=== PATIENT | female | born 1995 | race Caucasian/White ===

== ENCOUNTER 2017-08-13 08:11 | Emergency (ER) | payer BC, SELFPAY ==
[2017-08-13 08:12] VITALS: BP 89/61; PULSE 81; RESP 14; TEMP 36.7; BMI 17.8
[2017-08-13] MEDS: Ondansetron 4 MG/2 ML Vial IV (08:30)
[2017-08-13] MEDS: 0.9% Normal Saline 1,000 ML 999 ML IV (08:30)
[2017-08-13] MEDS: Dicyclomine 20 MG/2 ML Vial IM (08:31)
--- NOTE | 2017-08-13 08:33 | ED.VISSUMM ---
- ER Visit Summary Date of Service: 08/13/17 Chief Complaint: Nausea, vomiting, diarrhea History of Present Illness: The patient is a 22 F who has had nausea vomiting and diarrhea for the past 3 days. The nausea and vomiting just started yesterday. She has had 3 days of loose stools. She states that every time she has a bowel movement. She has had some abdominal cramping associated with this. Denies urinary symptoms. No fevers. She tried Pepto-Bismol and Mylanta without any relief. Denies any medical history. She is on control daily. Physical Examination: Vital signs reviewed. HEENT exam unremarkable. Heart is regular rate and rhythm without murmurs. Lungs are clear to auscultation. Abdomen is soft tenderness to palpation diffusely. No guarding or rebound tenderness. Extremities reveal no edema. Skin exam normal. Neurologic exam normal. Test Results: HCG negative. Urinalysis reveals trace ketones only Emergency Department Course and Treatment: She received normal saline as well as Bentyl and Zofran. She feels improved. When she had a bowel movement in the emergency department she had some trace blood in it. This is not surprising due to the amount of diarrhea she seems to be having. I feel the patient be discharged home. I do not feel she requires any blood work as her vital signs are normal. I will give her Zofran ODT, Bentyl and Imodium for home. She will follow-up with her PCP Treatment Plan: [] Disposition: Discharge Impression: Nausea, vomiting and diarrhea This note was generated with [employer] dictation software. It may contain incorrect words, spelling, and punctuation that were not noted in review of the chart prior to signing ED Disposition - Plan for ED Patient: Chief Complaint: Nausea/Vomiting/Diarrhea
[2017-08-13 08:36] VITALS: BP 108/74; PULSE 71; RESP 16; O2SAT 99
[2017-08-13 09:39] LABS: Bacteria 0 SEEN /hpf (None Seen); Mucous, Urine 0 SEEN /hpf (<or=2+); Red Blood Cells-Urine 0 SEEN /hpf (0-5); White Blood Cells 0 SEEN /hpf (0-5)
[2017-08-13 09:42] LABS: Color, Urine Yellow (Yellow); Glucose, Dipstick Normal (Normal); Ketone-Dipstick 15 mg/dl (Negative); Leukocyte Esterase-Dipstick Negative /ul (Negative); Nitrite-Dipstick Negative (Negative); Occult Blood-Urine 10 /ul (Negative); Protein-Dipstick Negative (Negative); Urine Bilirubin Dipstick Negative (Negative); Urine Clarity Clear (Clear); Urine Urobilinogen Normal (Normal)
[2017-08-13 09:43] LABS: Internal QC Validated? YES +Cl - CLEAR BKGD
[2017-08-13 09:44] LABS: Pregnancy, Urine Negative Negative
[2017-08-13 09:50] LABS: Squamous Epithelial Cells - UA 0-5 SEEN /hpf (5-10)
--- NOTE | 2017-08-13 09:54 | ED.DEP ---
ED Disposition - Plan for ED Patient: Disposition: Home or Assisted Living Chief Complaint: Nausea/Vomiting/Diarrhea Instructions: ED Diet Vomiting Diarrhea Prescriptions: Ondansetron [Zofran Odt] 4 mg PO Q8H PRN PRN #10 tab PRN Reason: Nausea Dicyclomine HCl [Bentyl] 20 mg PO TIDAC #20 cap Loperamide HCl [Imodium A-D] 2 mg PO TID #20 cap Referrals: Lyle Ledesma [Primary Care Provider] -
[2017-08-13 10:42] VITALS: BP 102/49; PULSE 84; RESP 14; O2SAT 100
--- NOTE | 2017-08-13 10:43 | ED.RN ---
THIS NURSE REVIEWED D/C INSTRUCTIONS WITH PT AND SISTER. PT VERBALIZED UNDERSTANDING OF INSTRUCTIONS. IV D/C. IV CATHETER INTACT. PT TOLERATED WELL. PT DENIES FURTHER NEEDS OR QUESTIONS AT THIS TIME.
== END 2017-08-13 10:44 | disposition home or self-care (01) ==
PROVIDERS: Emergency Provider Emergency Medicine; Family Provider Family Medicine; PCP Family Medicine
DX: R11.2 Nausea with vomiting, unspecified (principal); R19.7 Diarrhea, unspecified
CPT/HCPCS: 81001; 81025; 99283; J7030; J2405

== ENCOUNTER → 2018-02-08 11:47 | Outpatient (CLI) | payer BC, SELFPAY ==
[2018-02-08 13:07] LABS: Absolute Lymphocyte Count 2.59 X10^3/ul (0.83-4.51); Basophil# 0.04 X10^3/uL; Basophil% 0.8 % (0-1); Eosinophils% 1.9 % (0-5); Hematocrit 40.1 % (37-47); Hemoglobin 13.6 g/dl (12.0-15.0); Lymphocyte # 2.59 X10^3/ul (4.0); Lymphocyte % 50.4 % (19-41); Mean Corp Hgb Conc 33.9 g/gl (32-36); Mean Corpuscular Hgb 31.1 pg (27.0-32.0); Mean Corpuscular Volume 91.8 fL (81-99); Mean Platelet Vol. 10.1 fl (6.2-12.0); Monocyte# 0.45 X10^3/uL; Monocyte% 8.8 % (0-10); Neutrophil # 1.95 X10^3/uL (2.7-7.7); Neutrophil % 37.9 % (47-70); Platelet Count 274 K/mm3 (150-450); RBC Distribution Width CV 12.5 % (11.6-14.6); RBC Distribution Width SD 41.2 fl (35.1-43.9); Red Blood Count 4.37 M/mm3 (4.2-5.4); White Blood Count 5.1 K/mm3 (4.4-11.0)
[2018-02-08 13:08] LABS: POSITIVE COUNT NO; POSITIVE DIFFERENTIAL NO; POSITIVE MORPHOLOGY NO
[2018-02-08 13:58] LABS: ALB/GLOB Ratio 0.9 RATIO (0.9-2.4); AST(SGOT) 14 U/L (15-37); Alanine Aminotransfer ALT/SGPT 21 U/L (13-56); Albumin, Serum 3.7 g/dL (3.2-5.0); Alkaline Phosphatase 54 U/L (45-117); Anion Gap 10 (5-15); BUN 10 mg/dL (7-18); BUN/Creat Ratio 14.1 RATIO (10-20); Chloride 106 mmol/L (98-107); Creatinine, Serum 0.71 mg/dL (0.55-1.02); EST Glomerular Filtration Rate 111 mL/min (>60); Est Glom Filt Rate - Afr Amer 134 mL/min (>60); Free T3 2.9 pg/mL (2.18-3.98); Globulin 4.3 g/dL (2.2-4.2); Glucose 80 mg/dL (74-106); Potassium 3.9 mmol/L (3.5-5.1); Sodium Level 142 mmol/L (136-145); T4 Total, Thyroxin 10.4 ug/dL (4.8-13.9); Thyroid Stim Hormone (TSH) 0.93 uIU/mL (0.358-3.74)
--- OUTSIDE RECORDS SUMMARY | 2018-05-12 21:16 | XMS RPT_ITS ---
:1995 Author Organization [facility] Care Team Providers Name Role Phone Lyle Ledesma Attending Unavailable Lyle Ledesma Referring Unavailable LYLE LEDESMA Primary Care Unavailable Buddy Madden Attending Unavailable LYLE LEDESMA Primary Care Unavailable PROBLEMS PROBLEMS DATE TYPE CONDITION / CODE ATTENDING STATUS SOURCE 02/08/2018 Unknown R63.4 - Abnormal Lyle Ledesma Active [place] [facility] R63.4(ICD-10) Hospital Repository PROCEDURES PROCEDURES No Procedure Records FoundRESULTS RESULTS PROGRESS Observed: 02/13/2018 Status: COMPLETED Source: [place] 1:36 PM [facility] REPOSITORY HNO ID: [id number] Author: Ramandeep Ruth Service: (none) Author Type: Nurse Practitioner Type: Progress Notes Filed: 02/13/2018 1:41 PM Note Text: Subjective HPI Pt presents with c/o cold sore to upper lip x 3 days. 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 Reports recent increase in stressors with final exams. Has been applying OTC Abreva with no improvement. Used a new chapstick last night as well and this am upper lip was swollen as well. Thinks had allergic reaction. Denies fever, chills, myalgias, URI sx. Review of Systems Constitutional: Negative for chills and fever. HENT: Negative for congestion and sore throat. Respiratory: Negative for cough. Objective Physical Exam Constitutional: She is oriented to person, place, and time and well-developed, well-nourished, and in no distress. No distress. HENT: Mouth/Throat: Oral lesions present. Erythematous, scalingcrusting lesion noted. Generalized edema to entire upper lip. Neurological: She is alert and oriented to person, place, and time. Skin: Skin is warm and dry. She is not diaphoretic. BP 104/76 Pulse 105 Temp 37.3 ?C (99.1 ?F) (Left Tympanic) Resp 16 Wt 48.5 kg (107 lb) SpO2 98% .Patient presents with: Acute Visit: sore on lip x 2 days PAST MEDICAL HISTORY Diagnosis Date - NEGATIVE MEDICAL HISTORY PAST SURGICAL HISTORY Procedure Laterality Date - EXTRACTION ERUPTED TOOTH/EXR - TONSILLECTOMY HX ALLERGIES Patient has no known allergies. MEDICATIONS acyclovir (ZOVIRAX) 5 % crea Apply 1 application to affected area five times daily for 14 days. famciclovir (FAMVIR) 500 mg tablet Take 1.5 tablets by mouth twice daily for 1 day. imiquimod (ALDARA) 5 % cream Apply 1 application to affected area every Wednesday,Wednesday,Wednesday. predniSONE (DELTASONE) 20 mg tablet Take 2 tablets by mouth once daily for 5 days. Take daily with food. No family history on file. Social History Substance Use Topics - Smoking status: Never Smoker - Smokeless tobacco: Never Used - Alcohol use No ASSESSMENT/PLAN: 1. 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 Swelling of upper lip - ICD9: 784.2, ICD10: R22.0 - PREDNISONE 20 MG TABLET The patient is instructed to return or seek emergency treatment if symptoms become worse or with any acute change in condition. The patient verbalizes understanding and is in agreement with plan of care. Ramandeep Ruth CNP CNOV Observed: 02/13/2018 Status: COMPLETED Source: [place] 11:45 AM [facility] REPOSITORY Office Visit (WSTR) ELVIRA COOPER ([id number]) 1995 F Date Time Provider Department 02/13/18 11:45 AM RAMANDEEP RUTH [facility] During your visit today, we recorded the following information about you: Temperature Pulse Respiration Blood pressure 99.1 degrees 105/minute 16/minute 104/76 Weight 48.5 kg Ramandeep Ruth APRN.COMMUNITY SERVICE OFFICER 02/13/2018 1:41 PM Signed Subjective HPI Pt presents with c/o cold sore to upper lip x 3 days. 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 Reports recent increase in stressors with final exams. Has been applying OTC Abreva with no improvement. Used a new chapstick last night as well and this am upper lip was swollen as well. Thinks had allergic reaction. Denies fever, chills, myalgias, URI sx. Review of Systems Constitutional: Negative for chills and fever. HENT: Negative for congestion and sore throat. Respiratory: Negative for cough. Objective Physical Exam Constitutional: She is oriented to person, place, and time and well-developed, well-nourished, and in no distress. No distress. HENT: Mouth/Throat: Oral lesions present. Erythematous, scalingcrusting lesion noted. Generalized edema to entire upper lip. Neurological: She is alert and oriented to person, place, and time. Skin: Skin is warm and dry. She is not diaphoretic. BP 104/76 Pulse 105 Temp 37.3 ?C (99.1 ?F) (Left Tympanic) Resp 16 Wt 48.5 kg (107 lb) SpO2 98% .Patient presents with: Acute Visit: sore on lip x 2 days PAST MEDICAL HISTORY Diagnosis Date - NEGATIVE MEDICAL HISTORY PAST SURGICAL HISTORY Procedure Laterality Date - EXTRACTION ERUPTED TOOTH/EXR - TONSILLECTOMY HX ALLERGIES Patient has no known allergies. MEDICATIONS acyclovir (ZOVIRAX) 5 % crea Apply 1 application to affected area five times daily for 14 days. famciclovir (FAMVIR) 500 mg tablet Take 1.5 tablets by mouth twice daily for 1 day. imiquimod (ALDARA) 5 % cream Apply 1 application to affected area every Wednesday,Wednesday,Wednesday. predniSONE (DELTASONE) 20 mg tablet Take 2 tablets by mouth once daily for 5 days. Take daily with food. No family history on file. Social History Substance Use Topics - Smoking status: Never Smoker - Smokeless tobacco: Never Used - Alcohol use No ASSESSMENT/PLAN: 1. 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 Swelling of upper lip - ICD9: 784.2, ICD10: R22.0 - PREDNISONE 20 MG TABLET The patient is instructed to return or seek emergency treatment if symptoms become worse or with any acute change in condition. The patient verbalizes understanding and is in agreement with plan of care. Ramandeep Ruth CNP Referring Provider: SELF [200] Allergies As of Date: 02/13/2018 (No Known Allergies) Date Reviewed: 02/13/2018 Reviewed by: Keke Andrade Ma - Fully Assessed Reason for Visit: Acute Visit [896] Cmt: sore on lip x 2 days Primary Visit Diagnosis:Recurrent cold sores [B00.1] Other Visit Diagnosis:Swelling of upper lip [R22.0] Order(s):acyclovir (ZOVIRAX) 5 % creaApply 1 application to affected area five times daily for 14 days.Disp: 5 gRfl: 1 predniSONE (DELTASONE) 20 mg tabletTake 2 tablets by mouth once daily for 5 days. Take daily with food.Disp: 10 tabletRfl: 0 famciclovir (FAMVIR) 500 mg tabletTake 1.5 tablets by mouth twice daily for 1 day.Disp: 3 tabletRfl: 0 Prescriptions as of 02/13/2018 Sig: ACYCLOVIR 5 % TOPICAL CREAM Apply 1 application to affect* FAMCICLOVIR 500 MG TABLET Take 1.5 tablets by mouth twi* IMIQUIMOD 5 % TOPICAL CREAM P* Apply 1 application to affect* Patient not taking: Reported on 02/13/2018 PREDNISONE 20 MG TABLET Take 2 tablets by mouth once * Problem List As Of Date: 02/13/2018 (None) Prescriptions ordered this encounter Disp Refills Start End ACYCLOVIR 5 % TOPICAL CREAM 5 g 1 02/13/2018 02/27/2018 Route: TOPICAL Sig: Apply 1 application to affected area five times daily for 14 days. PREDNISONE 20 MG TABLET 10 t* 0 02/13/2018 02/18/2018 Route: ORAL Sig: Take 2 tablets by mouth once daily for 5 days. Take daily with food. FAMCICLOVIR 500 MG TABLET 3 ta* 0 02/13/2018 02/14/2018 Route: ORAL Sig: Take 1.5 tablets by mouth twice daily for 1 day. Encounter Status:Closed by RAMANDEEP RUTH CNP on 02/13/18 CBC W/DIFF, AUTOMATED Collected: 02/08/2018 Status: F Source: [place] 11:56 AM [facility] REPOSITORY TYPE CODE TESTS RESULT OUT OF RANGE REFERENCE UNITS LAB L100.1000 4.4-11.0 K/mm3 Normal WBC 5.1 LAB L100.1200 4.2-5.4 M/mm3 Normal RBC 4.37 LAB L100.1300 12.0-15.0 g/dl Normal HGB 13.6 LAB L100.1400 37-47 % Normal HCT 40.1 LAB L100.1500 81-99 fL Normal MCV 91.8 LAB L100.1600 27.0-32.0 pg Normal MCH 31.1 LAB L100.1700 32-36 g/gl Normal MCHC 33.9 LAB L100.1810 11.6-14.6 % Normal RDW CV 12.5 LAB L100.1820 35.1-43.9 fl Normal RDW SD 41.2 LAB L100.1900 150-450 K/mm3 Normal PLT 274 LAB L100.2000 6.2-12.0 fl Normal MPV 10.1 LAB L100.2100 47-70 % Low NEUT% 37.9 LAB L100.2200 19-41 % High LY% 50.4 LAB L100.2300 0-10 % Normal MONO% 8.8 LAB L100.2400 0-5 % Normal EO% 1.9 LAB L100.2500 0-1 % Normal BASO% 0.8 LAB L100.2550 0.0-0.9 % Normal IM GRAN % 0.200 Result Comment: IG% - Immature Granulocytes (promyelocytes, myelocytes and metamyelocytes) > 1% indicates that a LEFT SHIFT is Present. LAB L100.2620 2.0-7.7 X10 3/uL Normal Absolute Neut 2.0 LAB L100.2720 0.83-4.51 X10 3/ul Normal Absolute Lymph 2.59 Performed By: #### L100.0100 #### [facility] [place], [address] COMPREHENSIVE METABOLIC Collected: 02/08/2018 Status: F Source: [place] 11:56 AM [facility] REPOSITORY TYPE CODE TESTS RESULT OUT OF RANGE REFERENCE UNITS LAB L501.0100 74-106 mg/dL Normal GLU 80 Result Comment: Please note revised GLUCOSE reference range effective 2017. LAB L501.1000 7-18 mg/dL Normal BUN 10 LAB L501.1100 0.55-1.02 mg/dL Normal CREAT,SERUM 0.71 Result Comment: The validity of the calculated GFR AND GFRAA in patients over 70 years has not been determined. Clinical correlation is essential. LAB L501.1110 >60 mL/min Normal EST GFR 111 Result Comment: Non- GFR Calc LAB L501.1115 >60 mL/min Normal EST GFR - AA 134 Result Comment: GFR Calc LAB L501.1300 10-20 RATIO Normal BUN/CRE 14.1 LAB L501.1500 6.4-8.2 g/dL T Normal PROT 8.0 LAB L501.1800 3.2-5.0 g/dL Normal ALB 3.7 LAB L501.1950 2.2-4.2 g/dL High GLOB 4.3 LAB L501.2000 0.9-2.4 RATIO Normal A/G 0.9 LAB L501.2200 8.5-10.1 mg/dL CA Normal 9.0 LAB L501.4100 15-37 U/L Low AST 14 LAB L501.4305 45-117 U/L Normal ALK P 54 LAB L501.4405 13-56 U/L Normal ALT 21 LAB L501.4600 0.20-1.00 mg/dL T Normal BILI 0.50 LAB L501.5300 136-145 mmol/L NA Normal 142 LAB L501.5600 3.5-5.1 mmol/L K Normal 3.9 LAB L501.5900 98-107 mmol/L CL Normal 106 LAB L501.6100 21.0-32.0 mmol/L Normal CO2 26.0 LAB L501.6200 5-15 Normal GAP 10 Performed By: #### L500.4050, L501.96419, L501.9310, L501.9520 #### [facility] [address] [place], [address] FREE T3 Collected: 02/08/2018 Status: F Source: JG 11:56 AM [facility] REPOSITORY TYPE CODE TESTS RESULT OUT OF RANGE REFERENCE UNITS LAB L501.32128 2.18-3.98 pg/mL Normal FREE T3 2.9 Performed By: #### L500.4050, L501.28961, L501.9310, L501.9520 #### [facility] [address] [facility] [place], [address] T4 TOTAL, THYROXIN Collected: 02/08/2018 Status: F Source: [place] 11:56 AM [facility] REPOSITORY TYPE CODE TESTS RESULT OUT OF RANGE REFERENCE UNITS LAB L501.9310 4.8-13.9 ug/dL T4 Normal THYROXIN 10.4 Performed By: #### L500.4050, L501.83032, L501.9310, L501.9520 #### [facility] [place], [address] THYROID STIM HORMONE Collected: 02/08/2018 Status: F Source: JG (TSH) 11:56 AM [facility] REPOSITORY TYPE CODE TESTS RESULT OUT OF RANGE REFERENCE UNITS LAB L501.9520 0.358-3.74 uIU/mL Normal TSH 0.93 Performed By: #### L500.4050, L501.29817, L501.9310, L501.9520 #### [facility] [place], [address] DISCHARGE INSTRUCTION Observed: 08/13/2017 Status: F Source: JG 9:55 AM [facility] REPOSITORY [facility] Medical Records Department [facility] [place] [address] Discharge Instruction 08/13/17 0954 MR#: [id number] Acct: [id number] Name: ELVIRA CHENG Rep #: [id number] : 1995 22 From: Buddy Madden MD PCP: LYLE LEDESMA Status: REG ER ED Disposition - Plan for ED Patient: Disposition: Home or Assisted Living Chief Complaint: Nausea/Vomiting/Diarrhea Instructions: ED Diet Vomiting Diarrhea Prescriptions: Ondansetron [Zofran Odt] 4 mg PO Q8H PRN PRN #10 tab PRN Reason: Nausea Dicyclomine HCl [Bentyl] 20 mg PO TIDAC #20 cap Loperamide HCl [Imodium A-D] 2 mg PO TID #20 cap Referrals: Lyle Ledesam [Primary Care Provider] - What to do if you have Problems For any increased pain, shortness of breath, bleeding, nausea or vomiting, chest pain, or any unexpected problems, contact your Primary Care Provider. Call [facility] ([phone]) or report to the closest Emergency Room. Call 911 if necessary. 08/13/17 0955 <Electronically signed by Buddy Madden MD> Date Buddy Madden MD Cosigner Signature (If Indicated): Date CC: LYLE LEDESMA EMERGENCY DEPARTMENT Observed: 08/13/2017 Status: F Source: [place] SUMMARY 9:54 AM [facility] REPOSITORY [facility] Medical Records Department [address] [place] [address] Emergency Department Summary 08/13/17 0833 MR#: [id number] Acct: [id number] Name: ELVIRA CHENG Rep #: [id number] : 1995 22 From: Buddy Madden MD PCP: LYLE LEDESMA Status: REG ER - ER Visit Summary Date of Service: 08/13/17 Chief Complaint: Nausea, vomiting, diarrhea History of Present Illness: The patient is a 22 F who has had nausea vomiting and diarrhea for the past 3 days. The nausea and vomiting just started yesterday. She has had 3 days of loose stools. She states that every time she has a bowel movement. She has had some abdominal cramping associated with this. Denies urinary symptoms. No fevers. She tried Pepto-Bismol and Mylanta without any relief. Denies any medical history. She is on control daily. Physical Examination: Vital signs reviewed. HEENT exam unremarkable. Heart is regular rate and rhythm without murmurs. Lungs are clear to auscultation. Abdomen is soft tenderness to palpation diffusely. No guarding or rebound tenderness. Extremities reveal no edema. Skin exam normal. Neurologic exam normal. Test Results: HCG negative. Urinalysis reveals trace ketones only Emergency Department Course and Treatment: She received normal saline as well as Bentyl and Zofran. She feels improved. When she had a bowel movement in the emergency department she had some trace blood in it. This is not surprising due to the amount of diarrhea she seems to be having. I feel the patient be discharged home. I do not feel she requires any blood work as her vital signs are normal. I will give her Zofran ODT, Bentyl and Imodium for home. She will follow-up with her PCP Treatment Plan: [] Disposition: Discharge Impression: Nausea, vomiting and diarrhea This note was generated with [employer] dictation software. It may contain incorrect words, spelling, and punctuation that were not noted in review of the chart prior to signing ED Disposition - Plan for ED Patient: Chief Complaint: Nausea/Vomiting/Diarrhea What to do if you have Problems For any increased pain, shortness of breath, bleeding, nausea or vomiting, chest pain, or any unexpected problems, contact your Primary Care Provider. Call [facility] ([phone]) or report to the closest Emergency Room. Call 911 if necessary. 08/13/17 0954 <Electronically signed by Buddy Madden MD> Date Buddy Madden MD Cosigner Signature (If Indicated): Date CC: LYLE LEDESMA URINALYSIS, COMPLETE Collected: 08/13/2017 Status: F Source: [place] 9:29 AM [facility] REPOSITORY Order Comment: Order Date: 08/13/17 How was Urine Obtained? COKE CRANE OPERATOR TO SPECIFY TYPE CODE TESTS RESULT OUT OF RANGE REFERENCE UNITS LAB L400.3000 Yellow COLOR Normal Yellow LAB L400.3050 Clear Normal CLARITY Clear LAB L400.3200 Normal mg/dl Normal GLUCOSE, UR Normal LAB L400.3300 Negative mg/dL Normal BILIRUBIN URINE Negative LAB L400.3400 Negative mg/dl High 15 KETONE UR LAB L400.3465 1.002-1.030 Normal SP.GR. DIPSTX 1.010 LAB L400.3550 5.0 - 8.0 pH UR Normal 7.0 LAB L400.3600 Negative mg/dl PROT Normal DIPSTX Negative LAB L400.3700 Normal mg/dl Normal UROBILI Normal LAB L400.3750 Negative Normal NITRITE UR Negative LAB L400.3780 Negative /ul High 10 OCCULT BLOOD-UR LAB L400.3800 Negative /ul LEUK Normal ESTERASE Negative LAB L400.4050 0-5 /hpf WBC 0 Normal SEEN LAB L400.4100 0-5 /hpf 0 Normal RBC-UA SEEN LAB L400.4150 5-10 /hpf SQUAM Normal EPI 0-5 SEEN LAB L400.4300 None Seen /hpf 0 Normal BACTERIA SEEN LAB L400.4350 <or=2+ /hpf 0 Normal MUCUS, URINE SEEN Performed By: #### L400.0001 #### [facility] [address] [place], [place], [address] ,URINE Collected: 08/13/2017 Status: F Source: [place] 9:29 AM [facility] REPOSITORY Order Comment: Order Date: 08/13/17 TYPE CODE TESTS RESULT OUT OF REFERENCE UNITS RANGE LAB L400.8000 Negative Normal HCGUQUAL Negative Result Comment: Very dilute urine specimens, as indicated by a low specific gravity, may not contain junior sales representative levels of hCG. If is still suspected, a first morning urine specimen should be collected 48 hours later and tested. Performed By: #### L400.7600 #### [facility] [address] [place], [address] ALLERGIES ALLERGIES DATE TYPE / CODE NAME / CODE REACTION SEVERITY SOURCE 08/13/2017 Drug No Known Unknown [facility] Allergy/416 Allergies/W67228 Hospital 422884(SNOM 0388(RXNORM) Repository ED CT) Drug NO KNOWN [facility] Class/20901 ALLERGIES [place] 1003(SNOMED Repository CT) ENCOUNTERS ENCOUNTERS ADMIT/DISCHARGE ACCOUNT ADMITTING ENCOUNTER LOCATION SOURCE NUMBER CLASS 02/13/2018/02/15/20 [id number] Ambulatory [address] [place] Repository 02/08/2018 [id number] Ambulatory [facility] ing:LAB Repository 08/13/2017/08/14/19 [id number] Emergency [address] ing:ED Repository PAYERS PAYERS ENCOUNTER GUARANTOR PAYER SUBSCRIBER SOURCE 02/08/2018 ELVIRA Garcia Primary FERNANDO BODAGERDOB: Jg [id number] Insurance:[facility] [id number] Community [place] y Number: [place], [place] [id number] Repository [address]ry: (330) Date:7294-12-06JB [phone] () [id number], [place] [address]NT: 02/08/2018 Secondary NOT GIVENUNK [place] Insurance:SELF PAY [facility] Number: Effective Repository Date:2018-02-08 08/13/2017 ELVIRA Garcia Primary FERNANDO BODAGERDOB: [place] [id number] Insurance:[facility] [id number] Community [place] y Number: [place], [place] [id number] Repository [address]un: (330) Date:0140-14-22MA [phone] () [id number], [place] [address]DU: 08/13/2017 Secondary NOT GIVENUNK [place] Insurance:SELF PAY [facility] Number: Effective Repository Date:2017-08-13
== END ==
PROVIDERS: Family Provider Family Medicine; PCP Family Medicine; Referring Provider Family Medicine; Visit Provider Family Medicine
DX: R63.4 Abnormal weight loss (principal)
CPT/HCPCS: 36415; 80053; 84436; 84443; 84481; 85025

== ENCOUNTER → 2018-09-19 15:31 | Outpatient (CLI) | payer BC, SELFPAY ==
[2018-09-19 18:16] LABS: Chlamydia Trachomatis by PCR Negative (Negative); Neisserai gonorrhoeae by PCR Negative (Negative); Probe Check PASS; Sample Adequacy Control PASS; Specimen Processing Control PASS
[2018-09-22 15:47] LABS: HPV Reflexed? NOT INDICATED
== END ==
PROVIDERS: Visit Provider Obstetrics & Gynecology
DX: Z12.4 Encounter for screening for malignant neoplasm of cervix (principal); Z11.3 Encounter for screening for infections with a predominantly sexual mode of transmission
CPT/HCPCS: 87491; 87591; 87624; 88175; G0145

== ENCOUNTER 2020-09-17 13:53 | Outpatient (RCR) | payer BC, SELFPAY | END 2020-09-21 23:59 | LOC: DC 13:53 | PROVIDERS: Visit Provider Nurse Practitioner Family | DX: O24.410 Gestational diabetes mellitus in pregnancy, diet controlled (principal); Z3A.00 Weeks of gestation of pregnancy not specified | CPT/HCPCS: 97802 ==

== ENCOUNTER 2020-10-08 15:30 | Outpatient (RCR) | payer BC, SELFPAY | END 2020-10-08 23:59 | disposition home or self-care (01) | LOC: DC 15:30 | PROVIDERS: Visit Provider Nurse Practitioner Family | DX: O24.410 Gestational diabetes mellitus in pregnancy, diet controlled (principal); Z3A.00 Weeks of gestation of pregnancy not specified ==

== ENCOUNTER 2020-11-27 17:05 | Outpatient (CLI) | payer BC, MEDICAID, SELFPAY ==
--- NOTE | 2020-11-27 17:35 | OB.TRI.NOTE ---
HPI - General HPI Narrative ELVIRA CHENG, is a 25 F @ 39+ weeks with GDMA1 who presents for outpatient ramirez for IOL to start on 11/28/20 Maternal Data Information Final ANNA: 12/02/20 Final ANNA Source: US <20 weeks PFSH PFSH Home Medications Bcp 1 tab PO DAILY 08/13/17 [History Last Taken Unknown] dicyclomine 20 mg PO TIDAC #20 cap 08/13/17 [Rx Last Taken Unknown] loperamide 2 mg PO TID #20 cap 08/13/17 [Rx Last Taken Unknown] ondansetron 4 mg PO Q8H PRN PRN #10 tab 08/13/17 [Rx Last Taken Unknown] Allergy/AdvReac Type Severity Reaction Status Date / Time No Known Allergies Allergy Verified 10/21/20 13:43 Social History (System 10/21/20 @ 13:43 by Alexi Gavin) Smoking Status: Never smoker Physical Exam Narrative VE: Closed/Thick/Soft- unable to place ramirez transcervically. Const alert and oriented x3 General Appearance: cooperative HEENT normocephalic GI GI Narrative: Gravid, non tender to palpation. OB / External & Speculum: external exam normal Extremity normal to inspection Skin no rashes or lesions noted Neuro oriented x3 and CN's II-XII intact bilaterally Psych Appearance: grossly normal NST FHR Rate Baby A Baseline: 140 Variability:: Moderate Accelerations:: 15 x 15 Decelerations:: None NST Reactive:: Yes FHR Category:: Category I Uterine Activity:: irregular Assessment & Plan (1) Gestational diabetes: QUALIFIERS: Gestational diabetes mellitus control: diet-controlled Trimester: third trimester Qualified Code(s): O24.410 - Gestational diabetes mellitus in , diet controlled PLAN: @ 39 weeks GDMA1, unable to place ramirez for out patient cervical ripening 1) Dc home after NST 2) IOL tomorrow Evening 7pm- cytotec 3) pt verbalized understanding (2) 39 weeks gestation of :
[2020-11-27 17:58] VITALS: BMI 26.2
== END 2020-11-27 18:00 | disposition home or self-care (01) ==
LOC: WPOUT 17:19 → WP 17:20
PROVIDERS: PCP Family Medicine; Referring Provider Obstetrics & Gynecology; Visit Provider Obstetrics & Gynecology
DX: O24.410 Gestational diabetes mellitus in pregnancy, diet controlled (principal); Z3A.39 39 weeks gestation of pregnancy
CPT/HCPCS: 59025; 59050; 99218; G0378

== ENCOUNTER 2020-11-28 19:00 | Inpatient (IN) | payer BC, MEDICAID, SELFPAY ==
[2020-11-28 19:27] VITALS: BP 132/75; PULSE 74
[2020-11-28 19:28] VITALS: TEMP 37.2; O2SAT 99
[2020-11-28 19:30] VITALS: BMI 25.8
--- NOTE | 2020-11-28 19:36 | PCM.HP.OB ---
HPI - General General Date of Admission: 11/28/20 HPI Narrative ELVIRA CHENG, is a 25 F at 39.3 weeks gestation that presents for scheduled induction of labor. Patient denies any loss of fluid or vaginal bleeding. Positive movement. complicated by GDM A1 and anxiety. EFW 78% and AC >98% at 37 weeks gestation. Maternal Data Information ANNA Calculator Estimated Delivery Date Method Current WG Current Estimate 12/02/20 Manual 39w 3d PFSH PFSH Medical History Anxiety Depression Gestational diabetes Home Medications Bcp 1 tab PO DAILY 08/13/17 [History Last Taken Unknown] dicyclomine 20 mg PO TIDAC #20 cap 08/13/17 [Rx Last Taken Unknown] loperamide 2 mg PO TID #20 cap 08/13/17 [Rx Last Taken Unknown] ondansetron 4 mg PO Q8H PRN PRN #10 tab 08/13/17 [Rx Last Taken Unknown] Allergy/AdvReac Type Severity Reaction Status Date / Time No Known Allergies Allergy Verified 10/21/20 13:43 Surgical History History of surgery Social History Smoking Status: Former smoker History Elective abortions Hx Para 0 Spontaneous abortions Hx # Term Pregnancies Ectopic pregnancies Hx # Pregnancies Multiple births # of living children ROS Eyes Eyes: Denies blurry vision, change in vision or spots in vision ENT HEENT: Denies dizziness or headache(s) Cardiovascular Cardiovascular: Denies abdominal pain, chest pain or dyspnea Respiratory/Chest Respiratory/Chest: Denies cough, dyspnea, shortness of breath at rest or shortness of breath with exertion Gastrointestinal Gastrointestinal: Denies abdominal pain, diarrhea or vomiting Genitourinary Genitourinary: Denies change in urinary stream, difficulty urinating or dysuria Musculoskeletal Musculoskeletal: Reports none Integumentary Integumentary: Denies rash Neurologic Neurologic: Denies dizziness, headache(s), memory loss or weakness Psychiatric Psychiatric: Reports none Vital Signs Vital Signs Vital Signs: 11/28/20 19:27 11/28/20 19:28 Temperature 98.9 F Temperature Source Temporal Pulse Rate 74 Blood Pressure 132/75 H BP Systolic 132 BP Diastolic 75 Pulse Ox 99 Weight Weight: 155 lb 2 oz Body Mass Index (BMI) 25.8 Physical Exam Const alert, oriented x3 and no apparent distress General Appearance: cooperative Orientation / Consciousness: awake Exam Limitations: no limitations HEENT normocephalic Head and Scalp: normal to inspection Eyes General Eye: normal appearance of both eyes Neck full ROM and no lymphadenopathy Lymph Lymphatic: no lymphadenopathy noted Chest inspection of chest normal Resp normal respiratory effort, normal air movement and clear to auscultation bilaterally Effort and Inspection: able to speak in complete sentences and symmetric chest movement Cardio regular rate and regular rhythm GI normal to inspection, nondistended, normoactive bowel sounds Manual OB Exam: dilated Closed Back/Spine normal ROM Extremity full ROM and no calf tenderness Skin no rashes or lesions noted General Skin Exam: no breakdown Neuro oriented x3 and CN's II-XII intact bilaterally Psych mental status grossly normal and thought process normal Labs Labs Labs: Hct 40.1 % (37-47) Hgb 13.6 g/dl (12.0-15.0) C.trachomatis DNA (PCR) Negative (Negative) B+ Rubella - immune HB- neg HC- neg HIV-NR RPR- NR GC/CH- neg GBS - negative COVID- 19 negative 11/25/20 Assessment & Plan (1) 39 weeks gestation of : (2) Encounter for induction of labor: (3) GDM (gestational diabetes mellitus), class A1: PLAN: Admit to labor and delivery for scheduled induction of labor Routine labs Blood glucose monitoring per policy IV fluids per orders GBS negative Cytotec 25 mcg PO every 4 hours [address]ticipate placement of ramirez cath in AM Dr. Alvarez notified of admission and is collaborating physician
[2020-11-28 19:59] LABS: Absolute Lymphocyte Count 2.82 X10^3/uL (0.83-4.51); Absolute Neutrophil Count 5.4 X10^3/uL (2.0-7.7); Basophil# 0.06 X10^3/uL; Basophil% 0.7 % (0-1); Eosinophil# 0.14 X10^3/uL; Eosinophils% 1.5 % (0-5); Hematocrit 39.9 % (37-47); Hemoglobin 13.9 g/dL (12.0-15.0); Lymphocyte # 2.82 X10^3/ul (0.83-4.51); Lymphocyte % 30.6 % (19-41); Mean Corp Hgb Conc 34.8 g/dL (32-36); Mean Corpuscular Hgb 32.6 pg (27.0-32.0); Mean Corpuscular Volume 93.7 fL (81-99); Mean Platelet Vol. 11.5 fl (6.2-12.0); Monocyte# 0.79 X10^3/uL; Monocyte% 8.6 % (0-10); NRBC Flagged by Analyzer 0 % (0-5); Neutrophil # 5.35 X10^3/uL (2.7-7.7); Neutrophil % 58.1 % (47-70); Platelet Count 191 K/mm3 (150-450); RBC Distribution Width CV 12.7 % (11.6-14.6); RBC Distribution Width SD 43.5 fl (35.1-43.9); Red Blood Count 4.26 M/mm3 (4.2-5.4); White Blood Count 9.2 K/mm3 (4.4-11.0)
[2020-11-28 20:25] LABS: Bedside Glucose 95 mg/dL (70-110)
[2020-11-28 20:45] VITALS: TEMP 37.1
[2020-11-28] MEDS: miSOPROStol 25 MCG TABLET PO (20:45)
[2020-11-28 20:46] VITALS: BP 115/65; PULSE 69
[2020-11-28 21:26] LABS: Bedside Glucose 89 mg/dL (70-110)
[2020-11-28] MEDS: Lactated Ringers 500 ML 999 ML IV (23:30)
[2020-11-29] VITALS (54 sets, daily range): BP systolic 110–151; BP diastolic 56–93; PULSE 63–137; RESP 16; TEMP 36.7–37.3; O2SAT 96–100
[2020-11-29 01:06] LABS: Bedside Glucose 92 mg/dL (70-110)
[2020-11-29] MEDS: Lactated Ringers 1,000 ML 50 ML IV (01:17)
[2020-11-29] MEDS: Mag Hydrox/Al Hydrox/Simeth 30 ML UDC PO ×3 (01:20→21:07)
[2020-11-29] MEDS: miSOPROStol 25 MCG TABLET PO ×2 (01:48→05:51)
[2020-11-29 04:56] LABS: Bedside Glucose 68 mg/dL (70-110)
[2020-11-29] MEDS: Lactated Ringers 500 ML 999 ML IV ×3 (07:08→21:00)
[2020-11-29 08:24] LABS: Amphetamine Urine VISTA NEGATIVE (<1000 ng/mL); Barbiturate Urine VISTA NEGATIVE (< 200 ng/mL); Benzodiazepine Urine VISTA NEGATIVE (< 200 ng/mL); Cocaine Urine VISTA NEGATIVE (< 300 ng/mL); Ecstacy Urine VISTA NEGATIVE (< 500 ng/mL); Methadone Urine VISTA NEGATIVE (< 300 ng/mL); PCP Urine VISTA NEGATIVE (< 25 ng/mL); THC Urine VISTA NEGATIVE (< 50 ng/mL); Vista UDS pH Range 6
[2020-11-29] MEDS: 0.9% Normal Saline Single 100 ML IV.SOLN. INTRA-UTER (08:50)
--- NOTE | 2020-11-29 08:58 | PN.OBGYN_ITS ---
Subjective Subjective Doing well per patient and nursing staff. Comfortable in bed. Feeling contractions. at bedside. Objective Data Objective Data Vital Signs: Vital Signs Temp Pulse BP Pulse Ox 98.8 F 69 115/81 H 99 11/29/20 00:48 11/29/20 07:39 11/29/20 07:21 11/29/20 07:39 Weight: 155 lb 2 oz Body Mass Index (BMI) 25.8 Intake & Output: Intake and Output for Last 24 Hours 11/27/20 11/28/20 11/29/20 23:59 23:59 23:59 Intake Total 1292.5 / 1292.5 Balance 1292.5 / 1292.5 Lab / Micro Data Result Diagrams: 11/28/20 19:30 Labs: Laboratory Results - last 24 hr 11/28/20 19:30: WBC 9.2, RBC 4.26, Hgb 13.9, Hct 39.9, MCV 93.7, MCH 32.6 H, MCHC 34.8, RDW Std Deviation 43.5, RDW Coeff of Jules 12.7, Plt Count 191, MPV 11.5, Immature Gran % (Auto) 0.500, Neut % (Auto) 58.1, Lymph % (Auto) 30.6, [place]osh % (Auto) 8.6, Eos % (Auto) 1.5, Baso % (Auto) 0.7, Absolute Neuts (auto) 5.4, Absolute Lymphs (auto) 2.82, Nucleated RBC % 0 11/28/20 19:30: Blood Type B POSITIVE, Antibody Screen NEGATIVE 11/28/20 20:14: POC Glucose 95 11/28/20 21:19: POC Glucose 89 11/29/20 00:55: POC Glucose 92 11/29/20 04:50: POC Glucose 68 L 11/29/20 07:35: Urine Opiates Screen NEGATIVE, Urine Methadone Screen NEGATIVE, Ur Barbiturates Screen NEGATIVE, Ur Phencyclidine Scrn NEGATIVE, Ur Amphetamines Screen NEGATIVE, U Methamphetamin-MDMA NEGATIVE, U Benzodiazepines Scrn NEGATIVE, Urine Cocaine Screen NEGATIVE, U Cannabinoids Screen NEGATIVE, Ur Drug Screen Comment Physical Exam Narrative cervical exam with dimple, not able to fully penetrate cervical os. Alvarenga catheter placed with stylus through cervical os by speculum exam. 30ml of NS instilled. Patient tolerated well. NST FHR Rate Baby A Baseline: 125 Variability:: Minimal Accelerations:: None Decelerations:: Variable FHR Category:: Category II Uterine Activity:: every 5 moderate to strong Assessment & Plan (1) 39 weeks gestation of : (2) Encounter for induction of labor: (3) GDM (gestational diabetes mellitus), class A1: PLAN: 1) Alvarenga with pitocin per policy for IOL. Start pitocin at 10am (4 hrs after PO cytotec dose) 2) Continuous EFM 3) Pain management upon request 4) BS policy for GDM 5) Category 2 FHT 6) Dr.James garcía physician and notified of patient status
[2020-11-29 09:31] LABS: Bedside Glucose 87 mg/dL (70-110)
[2020-11-29] MEDS: Oxytocin 30 units/NS 500 ml 30 UNITS/500 ML IV.SOLN IV (10:29)
[2020-11-29] MEDS: fentaNYL 100 MCG/2 ML Ampul IV (12:04)
[2020-11-29 13:00] LABS: Bedside Glucose 86 mg/dL (70-110)
[2020-11-29 15:26] LABS: Bedside Glucose 83 mg/dL (70-110)
[2020-11-29 17:20] LABS: Bedside Glucose 99 mg/dL (70-110)
[2020-11-29 17:20] LABS: Bedside Glucose 75 mg/dL (70-110)
--- NOTE | 2020-11-29 17:46 | PN.OBGYN_ITS ---
Subjective Subjective Resting up in charge, breathing through contractions. Family at bedside. Objective Data Objective Data Vital Signs: Vital Signs Temp Pulse BP Pulse Ox 99.2 F H 89 123/76 H 99 11/29/20 17:10 11/29/20 17:11 11/29/20 17:10 11/29/20 17:11 Weight: 155 lb 2 oz Body Mass Index (BMI) 25.8 Intake & Output: Intake and Output for Last 24 Hours 11/27/20 11/28/20 11/29/20 23:59 23:59 23:59 Intake Total 1796.20 / 1796.20 Balance 179. / 179. Lab / Micro Data Result Diagrams: 11/28/20 19:30 Labs: Laboratory Results - last 24 hr 11/28/20 19:30: WBC 9.2, RBC 4.26, Hgb 13.9, Hct 39.9, MCV 93.7, MCH 32.6 H, MCHC 34.8, RDW Std Deviation 43.5, RDW Coeff of Jules 12.7, Plt Count 191, MPV 11.5, Immature Gran % (Auto) 0.500, Neut % (Auto) 58.1, Lymph % (Auto) 30.6, [place] % (Auto) 8.6, Eos % (Auto) 1.5, Baso % (Auto) 0.7, Absolute Neuts (auto) 5.4, Absolute Lymphs (auto) 2.82, Nucleated RBC % 0 11/28/20 19:30: Blood Type B POSITIVE, Antibody Screen NEGATIVE 11/28/20 20:14: POC Glucose 95 11/28/20 21:19: POC Glucose 89 11/29/20 00:55: POC Glucose 92 11/29/20 04:50: POC Glucose 68 L 11/29/20 07:35: Urine Opiates Screen NEGATIVE, Urine Methadone Screen NEGATIVE, Ur Barbiturates Screen NEGATIVE, Ur Phencyclidine Scrn NEGATIVE, Ur Amphetamines Screen NEGATIVE, U Methamphetamin-MDMA NEGATIVE, U Benzodiazepines Scrn NEGATIVE, Urine Cocaine Screen NEGATIVE, U Cannabinoids Screen NEGATIVE, Ur Drug Screen Comment 11/29/20 09:16: POC Glucose 87 11/29/20 12:56: POC Glucose 86 11/29/20 15:17: POC Glucose 83 11/29/20 16:08: POC Glucose 75 11/29/20 17:07: POC Glucose 99 Physical Exam Narrative vertex 5cm/60%/-1 AROM for moderate amount of clear fluid NST FHR Rate Baby A Baseline: 130 Variability:: Minimal Accelerations:: None Decelerations:: None FHR Category:: Category II Uterine Activity:: every 2-4 minutes Assessment & Plan (1) 39 weeks gestation of : (2) Encounter for induction of labor: (3) GDM (gestational diabetes mellitus), class A1: PLAN: 1) Continue with pitocin induction per policy 2) AROM after consent, tolerated well 3) Epidural for pain management upon patient request 4) notified of patient status
[2020-11-29] MEDS: fentaNYL-bupivacaine (epidural) 100 ML BAG EPIDURAL ×2 (18:02→23:09)
[2020-11-29] MEDS: Lactated Ringers 1,000 ML 200 ML IV (19:37)
[2020-11-29] MEDS: Amnioinfusion- 0.9% NS 1,000 ML IV.SOLN. INTRA-UTER (19:37)
[2020-11-29 21:40] LABS: Bedside Glucose 76 mg/dL (70-110)
[2020-11-29 21:40] LABS: Bedside Glucose 83 mg/dL (70-110)
[2020-11-29 21:40] LABS: Bedside Glucose 84 mg/dL (70-110)
[2020-11-29 21:56] LABS: Bedside Glucose 83 mg/dL (70-110)
[2020-11-29 22:50] LABS: Bedside Glucose 77 mg/dL (70-110)
[2020-11-29 23:56] LABS: Bedside Glucose 83 mg/dL (70-110)
[2020-11-29] MEDS: Sodium Citrate/Citric Acid 30 ML UDC PO (23:59)
[2020-11-30] VITALS (15 sets, daily range): BP systolic 109–129; BP diastolic 55–91; PULSE 64–94; RESP 14–20; TEMP 36.2–36.8; O2SAT 94–99
--- NOTE | 2020-11-30 00:06 | OP.PCM_ITS ---
Maternal Data Information ANNA Calculator Estimated Delivery Date Method Current WG Current Estimate 12/02/20 Manual 39w 5d Final ANNA: 12/02/20 Gestational age: 39&5 Details Operative Information Date of Procedure: 11/30/20 Pre-Operative Diagnosis: (1) Inability of fetus to tolerate labor (2) Failure to dilate (3) Gestational diabetes (A1) Post-Operative Diagnosis: Same Indications for : Sec. Arrest of Dilitation Indications Narrative: The patient was taken to the operating room where epidural anesthesia was dosed & found to be adequate. She was prepped and draped in the dorsal supine position with a leftward tilt. A Pfannenstiel skin incision was made approximately 2 cm above the symphysis pubis and carried through to the underlying fascia with the scalpel. The fascia was incised incised in the midline and extended laterally with the Theodore scissors. The rectus muscles were in the midline and the peritoneum was entered carefully and bluntly. The peritoneal incision was stretched and the bladder blade was inserted. Vesicouterine peritoneum was tented up, incised & then bladder flap created gently. The uterine incision was made in a low transverse fashion with the scalpel and extended superiorly and inferiorly with blunt dissection. The infant's head was brought to the incision in the flexed position and delivered without difficulty. The head was gently guided to allow delivery of the anterior and posterior shoulders. The body then delivered with fundal pressure in the standard fashion. The 3VC cord was clamped and cut in delayed fashion. The was handed off to the waiting pediatric assistant. The placenta was delivered with fundal massage and gentle traction in the standard fashion. The uterus was exteriorized and cleared of clots and debris. The uterine incision was closed with #1 Vicryl suture in a running locked fashion. Monocryl suture was used in an imbricating fashion. The incision was examined and was found to be hemostatic. The uterus was returned to the abdominal cavity. After irrigating Ashley was placed over the uterine incision as some areas were denuded (but hemostatic). The peritoneum was closed with vicryl suture in running fashion The rectus muscle was examined and any bleeding was Bovie cauterized. The fascia was closed with PDS suture in a running standard fashion. The subcutaneous tissue was examining and any bleeding was Bovie cauterized. The subcutaneous tissue was reapproximated with interrupted sutures. The skin was closed in a subcuticular fashion by the CLINICAL EDITOR while I was present in the labor & delivery unit. The remainder of the procedure was performed by me with assistance. All sponge, lap, and needle counts were correct. The patient was taken to her room for recovery in a stable condition. Classification: HATTIE Procedure Type: low transverse stone gang sawyer #1: Hernan Black Type of Anesthesia: Epidural Antibiotic Given: Ancef 2 grams IV x1 and Zithromax 500 mg/5 mL X1 Drain: Alvarenga to straight drain Estimated Blood Loss: 950ml Fluids Replaced: 800ml Procedure Start Time: 00:21 Procedure Stop Time: 01:20 Findings Description of Procedure: Normal maternal uterus and adnexa Presentation: Positive for Vertex Amniotic Membrane Rupture Type: Artificial Amniotic Fluid Description: Clear Placental Delivery Description: Expressed Placenta Disposition: [facility] Cord Vessel Description: 3 Vessels A Gender: Female (weight = 6-13) (1 minute): 9 (5 minute): 9 Delayed Cord Clamping: Yes
[2020-11-30] MEDS: Cefazolin 2 GM in 0.9% Normal Saline 100 ML IV (00:08)
[2020-11-30] MEDS: Methylergonovine 0.2 MG/ML Ampul IM (00:29)
[2020-11-30] MEDS: Oxytocin 30 units/NS 500 ml 30 UNITS/500 ML IV.SOLN 167 UNITS IV (01:50)
[2020-11-30] MEDS: Ketorolac 30 MG/ML Syringe IV ×4 (02:19→20:50)
[2020-11-30] MEDS: Acetaminophen 500 MG Tablet 1000 MG PO ×4 (02:19→20:50)
[2020-11-30 02:56] LABS: Bedside Glucose 87 mg/dL (70-110)
[2020-11-30] MEDS: Lactated Ringers 1,000 ML 100 ML IV (05:06)
[2020-11-30] MEDS: Senna/Docusate Sodium 1 Tablet PO (09:52)
[2020-11-30] MEDS: Enoxaparin 40 MG/0.4 ML Syringe SC (13:43)
[2020-11-30 16:09] LABS: Hemoglobin 12.2 g/dL (12.0-15.0); Mean Corp Hgb Conc 33.9 g/dL (32-36); Mean Corpuscular Hgb 32.4 pg (27.0-32.0); Mean Corpuscular Volume 95.7 fL (81-99); Mean Platelet Vol. 11.2 fl (6.2-12.0); Platelet Count 155 K/mm3 (150-450); RBC Distribution Width CV 12.9 % (11.6-14.6); RBC Distribution Width SD 45.8 fl (35.1-43.9); Red Blood Count 3.76 M/mm3 (4.2-5.4); White Blood Count 19.2 K/mm3 (4.4-11.0)
[2020-11-30] MEDS: Sertraline 50 MG Tablet 12.5 MG PO (16:21)
[2020-12-01 01:14] VITALS: BP 120/80; PULSE 68; RESP 18
[2020-12-01] MEDS: Ibuprofen 600 MG Tablet PO ×4 (02:17→20:20)
[2020-12-01] MEDS: Acetaminophen 500 MG Tablet 1000 MG PO ×4 (02:18→20:19)
[2020-12-01 08:00] VITALS: BP 123/75; PULSE 71; RESP 16; TEMP 36.7
[2020-12-01] MEDS: guaiFENesin 10 ML UDC (200MG/10ML) PO ×3 (08:17→23:48)
--- NOTE | 2020-12-01 09:01 | PCM.PN.OB ---
Subjective Subjective Pain controlled. Cough improved with robitussin. Objective Data Objective Data Vital Signs: Vital Signs Temp Pulse Resp BP Pulse Ox 98.1 F 71 16 123/75 H 99 12/01/20 08:00 12/01/20 08:00 12/01/20 08:00 12/01/20 08:00 11/30/20 15:46 Oxygen Delivery Method Room Air Weight: 155 lb 2 oz Body Mass Index (BMI) 25.8 Intake & Output: Intake and Output for Last 24 Hours 11/29/20 11/30/20 12/01/20 23:59 23:59 23:59 Intake Total 5115.37 / 5115.37 2351.66 / 2351.66 Output Total 1500 / 1500 3350 / 3350 Balance 3615.37 / 3615.37 -998.34 / -998.34 Lab / Micro Data Result Diagrams: 11/30/20 15:46 Labs: Laboratory Results - last 24 hr 11/30/20 15:46: WBC 19.2 H, RBC 3.76 L, Hgb 12.2, Hct 36.0 L, MCV 95.7, MCH 32.4 H, MCHC 33.9, RDW Std Deviation 45.8 H, RDW Coeff of Jules 12.9, Plt Count 155, MPV 11.2 Physical Exam Const alert, oriented x3 and no apparent distress HEENT normocephalic GI soft to palpation, non-tender and non-distended GI Narrative: fundus firm, mid & below umbilicus Incision - bandage c/d/i Extremity normal to inspection and no calf tenderness Assessment & Plan (1) Encounter for induction of labor: COMMENT: POD#1 PLAN: Heme - HDS, CBC reviewed ID - AF, no signs infection GI/ - no issues A1GDM - needs PP 2hr GTT Routine care
[2020-12-01] MEDS: Senna/Docusate Sodium 1 Tablet PO (10:47)
[2020-12-01] MEDS: Enoxaparin 40 MG/0.4 ML Syringe SC (10:47)
[2020-12-01] MEDS: Sertraline 50 MG Tablet 12.5 MG PO (10:47)
[2020-12-01 14:06] VITALS: BP 119/83; PULSE 82; RESP 16; TEMP 36.7; O2SAT 95
[2020-12-01 14:45] VITALS: O2SAT 96
[2020-12-01 20:14] VITALS: BP 130/63; PULSE 86; RESP 18
[2020-12-02 02:17] VITALS: BP 121/73; PULSE 71; RESP 18
[2020-12-02] MEDS: Ibuprofen 600 MG Tablet PO ×2 (02:21→09:01)
[2020-12-02] MEDS: Acetaminophen 500 MG Tablet 1000 MG PO ×2 (02:21→09:00)
[2020-12-02 04:51] LABS: Bedside Glucose 77 mg/dL (70-110)
--- NOTE | 2020-12-02 07:57 | PCM.PN.OB ---
Subjective Subjective Patient seen at bedside, doing well. Patient reports good pain control. Mild lochia. Voiding without difficulty. Bowel movement x2. Breast-feeding going well. Patient ready for DC home today. Objective Data Objective Data Vital Signs: Vital Signs Temp Pulse Resp BP Pulse Ox 98.1 F 71 18 121/73 H 96 12/01/20 14:06 12/02/20 02:17 12/02/20 02:17 12/02/20 02:17 12/01/20 14:45 Oxygen Delivery Method Room Air Weight: 70.364 kg Body Mass Index (BMI) 25.8 Intake & Output: Intake and Output for Last 24 Hours 11/30/20 12/01/20 12/02/20 23:59 23:59 23:59 Intake Total 2351.66 / 2351.66 Output Total 3350 / 3350 Balance -998.34 / -998.34 Lab / Micro Data Result Diagrams: 11/30/20 15:46 Labs: Laboratory Results - last 24 hr 12/02/20 04:47: POC Glucose 77 Physical Exam Narrative Dressing dry and intact. Fundus firm. Const alert and oriented x3 General Appearance: cooperative HEENT normocephalic Neck General: normal visual inspection GI soft to palpation and non-distended GI Narrative: Fundus firm Extremity normal to inspection and no calf tenderness Skin no rashes or lesions noted Neuro oriented x3 and CN's II-XII intact bilaterally Psych mental status grossly normal Assessment & Plan (1) Delivery by section: PLAN: POD# 2 , Doing well Routine care pain mgmt monitor VS ambulation dc home
--- NOTE | 2020-12-02 08:00 | PCM.DC ---
Discharge Instructions Diet Discharge Diet: No restrictions Activity May resume sexual activity in: 6-8 weeks Lifting Restrictions: 25 Dressing / Incision Call your doctor if your incision/area has: Continuous Slow Oozing, Sudden Increased Bleeding, Increased Pain/ Swelling, Increased Redness, Foul Smelling Discharge and Swelling at the incision site Call your doctor if you observe: Fever of 101 or Higher, Inability to urinate, Using more than 1 pad per hour and Uncontrolled pain Additional Dressing/Incision Instructions:: remove dressing at 7 days post op- if it becomes saturated prior to that time you may remove it. Let soap and water run over incision sites and dab dry. keep incision clean and dry. Follow Up Care Please Follow Up With: Donna Luke MD When: 1-2 weeks post of incision check and again at 6 weeks post . [phone] Test Results: Test results from this visit will be discussed in further detail at your follow-up appointment, if applicable. Discharge Plan Admission Admit Date/Time: 11/28/20 19:00 Attending Provider: Deandra Slater Primary Care Provider: Lyle Ledesma Discharge Orders/Prescriptions Prescriptions: New acetaminophen 500 mg Tablet 1,000 mg PO Q6H Qty: 0 RF: 0 ibuprofen 600 mg Tablet 600 mg PO Q6H Qty: 0 RF: 0 sertraline 50 mg Tablet 12.5 mg PO DAILY Qty: 0 RF: 0 simethicone [Mi-Acid Gas Relief(simethicon)] 80 mg Tablet,Chewable 80 mg PO PCHS PRN (Reason: Indigestion/stomach pain) Qty: 0 RF: 0 Continued [id number] 1 mg Tablet 1 tab PO DAILY RF: 0 sertraline [Zoloft] 25 mg Tablet 25 mg PO DAILY RF: 0 Referrals / Follow Up: Lyle Ledesma DO [Primary Care Provider] -
--- NOTE | 2020-12-02 08:02 | DS.PCM_ITS ---
Discharge Summary Date of Admission: 11/28/20 Date of Discharge: 12/02/20 Summary: Patient was admitted to [facility] for an induction of labor due to 39+ weeks gestation, gestational diabetes diet controlled. Patient underwent a Cytotec induction followed by transcervical ramirez with Pitocin and had a primary low-transverse section on 11/30/[address] Nellie Escobar for intolerance to labor and Arrest of dilation.. Patient was then discharged home in stable condition on postoperative day #2. Meaningful Use Info Meaningful Use Diagnoses (Choose all that apply): None applicable Discharge Plan Admission Admit Date/Time: 11/28/20 19:00 Attending Provider: Deandra Slater Primary Care Provider: Lyle Ledesma Discharge Orders/Prescriptions Prescriptions: New acetaminophen 500 mg Tablet 1,000 mg PO Q6H Qty: 0 RF: 0 ibuprofen 600 mg Tablet 600 mg PO Q6H Qty: 0 RF: 0 sertraline 50 mg Tablet 12.5 mg PO DAILY Qty: 0 RF: 0 simethicone [Mi-Acid Gas Relief(simethicon)] 80 mg Tablet,Chewable 80 mg PO PCHS PRN (Reason: Indigestion/stomach pain) Qty: 0 RF: 0 Continued [id number] 1 mg Tablet 1 tab PO DAILY RF: 0 sertraline [Zoloft] 25 mg Tablet 25 mg PO DAILY RF: 0 Referrals / Follow Up: Lyle Ledesma DO [Primary Care Provider] -
[2020-12-02 09:00] VITALS: BP 117/67; PULSE 77; RESP 18; TEMP 36.1
[2020-12-02] MEDS: Senna/Docusate Sodium 1 Tablet PO (09:00)
--- NOTE | 2020-12-02 10:32 | CASEMGMT ---
Addendum entered and electronically signed by Daniela Chávez 12/02/20 11:46: Addendum: Infant's urine drug screen is negative and meconium is pending. shae Original Note: Social Work Assessment Labor and Delivery Unit Patient Address: [address]ailing address-[address] [place] [address]; residential address-[address], [place] [address] Phone number: [phone] Date of Referral: 11/30/2020 Time of Referral: 721; 133 Referred By: Elizabeth Cervantes CNM; Dr. Mansfield Date of Intervention: 12/02/2020 Time of Intervention: 1020 Reason for Referral: Maternal history of depression and anxiety, positive opioid screen in first trimester. History obtained from: Medical records and mother of baby (MELISSA) Belen Fam; father of baby (FOB) Merlin Gabriel present for part of conversation. Household composition: MELISSA lives in the FOB's apartment. No reported safety concerns or issues with housing. Patient's parent/guardian status: MELISSA is a 25-year-old single female, involved with the FOB who is 27 years old for the last 2 years. During private conversation MELISSA denies any type of abuse, control or intimidation in this relationship. First baby for both parents. [place] infant is to be named Gisselle Gabriel, born 11/[birth year]/2020. Medical History: MELISSA is 1, para 0 now 1 after delivering baby girl. care started in the eighth week on 04/22/2020. Regular thereafter. Delivery via section for failure to progress. weight 6 pounds 13 ounces. Apgars 9 and 9 at 1 and 5 minutes of life. Record indicates history of maternal gestational diabetes. 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 No reported issues with reading, writing, or learning comprehension. 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 FOB is a dietary chef under at [employer]. Infant Supplies: It is reported that all necessary supplies are in place including a car seat and safe sleep space. Parents have a bassinet to use at this time. Reported to have clothing, diapers, wipes. Childcare/Caregiver(s): MOB will be the primary caregiver with help from the FOB. Transportation: No reported issues with transportation. Programs/Agencies Involved: MELISSA has Medicaid through job and family services. Applied for the food card during but was denied. Encouraged MOB to reapply for food assistance now that the baby is born, and MOB'S income is reduced due to maternity leave. Plans to apply for WIC. Verbally agrees to Help Me Grow referral. Behavioral Health Issues: Mental Health History: MOB endorses history of depression and anxiety. History of treatment with Lexapro prior to and then switching to Zoloft during . MOB plans to remain on the antidepressant medication in the timeframe. [place] depression screen completed this date with a score of 6. This falls below the threshold for depression. MOB denies any history of suicidal ideation, attempts or intent. No history of homicidal ideation. Substance Use History: MOB endorses history of Percocet abuse, though was not talkative about when this used started for the MOB. Brian did receive some treatments at a center in [place] at one point, treated with Vivitrol, and was sober for about 1 year. Reports attended AA meetings at that time. Reports had a relapse and was using Percocet, but stopped this in the first trimester of . When asked about date of last use MOB reports it was around the time of positive drug screen. MOB denies history of heroin use, meth, cocaine, or other narcotic pills. Denies any alcohol use during or history of alcohol use issues. Does not use tobacco. Family History: MOB reports history of depression and anxiety in her teen. Reports likely some substance use history as well. Not specific as to who and her family may have had history of such. Drug Screens: Maternal drug screen positive for oxycodone on 04/22/2020. Negative on 09/18/2020 and also at time of delivery on 11/29/2020. Family/Social Stressors: Unplanned , though accepted. Maternal history of substance use, with use in the first trimester, not currently in treatment. MOB reports however no concerns about future use at this time. Support Systems: MOB reports her mother and sister will be around and plans on helping in the timeframe. The FOB gets a week and a half off of work, so will also be at home to help. MOB reports her main emotional support is her mother. Depression/Shaken Baby/Safe Sleeping: Reviewed shaken baby prevention and safe sleeping with both parents. Reviewed mood and anxiety disorders with both parents, risk factors, and importance of seeking out help and support. ASSESSMENT: Met with MOB and FOB together, and then with the MOB privately. MOB and FOB both cooperative and pleasant during social work visit. FOB did spend time in the room laying down on the bed and watching TV, would engage in conversation when elicited. FOB did have appropriate questions regarding care of baby. MOB held good eye contact. Guarded during discussion about substance use, but more talkative and relaxed posture when moving away from this topic. Did become teary eyed when discussing mood and anxiety disorders. During private conversation the MOB reports she has been tearful intermittently, for no apparent reason. Educated to the baby blues and that it is a common experience to become tearful in the first couple of weeks. Educated and encouraged MOB to seek out additional support should these episodes of tearfulness increase or not subside after a couple of weeks. MOB endorses plan to remain on antidepressant medication. Addressed with the MOB history of substance use. MOB reports the FOB is aware of MOB history of substance use. Denies that the FOB has any history of himself and that FOB has been supportive of the MOB. MOB reports that she was able to quit using Percocet on her own, and was not to the level of becoming sick upon cessation during . MOB reports that she is not having any type of using dreams or thoughts. Denies any concerns about relapse at this time. Reports does have support to speak to, should concerns arise in the future. Educated MOB to the need for a report to children services due to that substance exposure, although uncertain whether case would be open for investigation or not at this time. Allowed MOB opportunity to ask questions, though MOB had no specific questions about children services. MOB reports to have a loving platt with the baby, although admits that initially right after was having a hard time doing anything. MOB reports that the section was something she was not expecting so feels this played a part into delayed feelings of bonding. MOB reports at this time however she cannot imagine anything other than having her baby. MOB attended to the baby, held the baby, engaged with the baby and appeared to be bonding with the baby during the visit. Emotional support and reflection offered. MOB is willing to have a Help Me Grow referral. Safe Plan of Care for infant related to substance use: MOB plans to abstain from any future substance use. Reports that should something change would not provide breast milk to the baby. Educated MOB of the importance of making sure that a sober adult is caring for the baby. MOB expressed understanding. Explored whether MOB would ever be willing to go back to treatment of counseling. MOB reports that she needed to she would. PLAN: MOB and infant will discharge home today. Will have help and support from the FOB and MOB family. Help me grow referral being made. Will alert children services to first trimester exposure to opiates. Provided MOB with resource list for [facility], [facility] applications, and a packet on mood and anxiety disorders. -JUDY Knox MSW *This note was generated with AetherPalation software. It may contain incorrect words, spelling, and punctuation that were not noted in review of the chart prior to signing*
[2020-12-02] MEDS: Enoxaparin 40 MG/0.4 ML Syringe SC (11:18)
[2020-12-02] MEDS: Sertraline 50 MG Tablet 12.5 MG PO (11:18)
--- NOTE | 2020-12-02 12:18 | CASEMGMT ---
Social Work Labor and Delivery Unit Help me grow referral submitted through the [facility] assisted care web-based referral system. [facility] services closed for the holiday. Due to negative drug screens for both mom and baby at time of delivery, and no voiced concerns by staff regarding parent-child interactions or bonding, this promotion writer will await normal business hours to complete referral. -AMANDA Knox, AIRLINE PILOT FLIGHT INSTRUCTOR. *This note was generated with Anatexis dictation software. It may contain incorrect words, spelling, and punctuation that were not noted in review of the chart prior to signing*
--- NOTE | 2020-12-03 16:57 | CASEMGMT ---
Social Work Labor and Delivery Unit Spoke with Huong Gonzalez at [facility], , extension [phone]. Referral due to substance exposed infant in utero to opiates, based on first trimester drug screen, Updated that both mom and baby's urine drug screens at time of delivery were negative. Brief maternal and infant history is provided. Notified that meconium drug screen is pending. -AMANDA Knox, FIXED INCOME ANALYST *This note was generated with Dr[employer] Downtown[employer] software. It may contain incorrect words, spelling, and punctuation that were not noted in review of the chart prior to signing*
--- NOTE | 2020-12-24 14:30 | CASEMGMT ---
Social Work Labor and Delivery Meconium drug screen results are back and negative for any drugs of abuse. No further referrals are indicated. -AMANDA Knox, QUALITY ENGINEER
== END 2020-12-02 12:45 | disposition home or self-care (01) | DRG 788 ==
PROVIDERS: Obstetrics & Gynecology; Admitting Provider Advanced Practice Midwife; PCP Family Medicine; Visit Provider Advanced Practice Midwife
DX: O62.1 Secondary uterine inertia (principal); O77.9 Labor and delivery complicated by fetal stress, unspecified; O24.420 Gestational diabetes mellitus in childbirth, diet controlled; Z87.891 Personal history of nicotine dependence; Z37.0 Single live birth; Z3A.39 39 weeks gestation of pregnancy
CPT/HCPCS: 59025; 59050; 80307; 82962; 85025; 85027; 86850; 86900; 86901; 99218; 99251; J7030; J7120; G0378; G0463; J2405

== ENCOUNTER 2024-01-26 09:37 | Inpatient (IN) | payer MEDICAID, SELFPAY ==
[2024-01-26] VITALS (19 sets, daily range): BP systolic 102–121; BP diastolic 54–85; PULSE 66–83; RESP 16–18; TEMP 36.2–36.8; O2SAT 97–100; BMI 28.8
--- NOTE | 2024-01-26 09:50 | PCM.HP.OB ---
HPI - General General Date of Admission: 01/26/24 Date of Service: 01/26/24 Chief Complaint: Repeat HPI Narrative ELVIRA CHENG, is a 28 F who presents scheduled repeat Maternal Data Information Final ANNA: 02/[birth year]/24 Gestational age: 39 weeks [facility] Medical History Anxiety Depression Gestational diabetes HPV (human papilloma virus) infection Home Medications ?Medication ?Instructions ?Recorded ?Last Taken ?Type sertraline 25 mg tablet (Zoloft) 25 mg PO DAILY anxiety/depression 11/28/20 01/25/24 22:00 History vit no.95-ferrous 1 tab PO DAILY 01/26/24 01/25/24 22:00 History fumarate 28 mg-folic acid 800 mcg tablet () Allergy/AdvReac Type Severity Reaction Status Date / Time No Known Allergies Allergy Verified 01/26/24 09:46 Surgical History History of surgery Social History Smoking Status: Never smoker History 2 Elective abortions Hx Para 1 Spontaneous abortions Hx # Term Pregnancies Ectopic pregnancies Hx # Pregnancies Multiple births # of living children NST FHR Rate Baby A Baseline: 135 Variability:: Moderate Accelerations:: 15 x 15 Decelerations:: None NST Reactive:: Yes FHR Category:: Category I Uterine Activity:: occasional ROS Constitutional Constitutional: Denies fatigue, fever(s) or malaise Eyes Eyes: Denies change in vision ENT HEENT: Denies dizziness or headache(s) Cardiovascular Cardiovascular: Denies chest pain, dyspnea or lightheadedness Respiratory/Chest Respiratory/Chest: Denies cough or dyspnea Gastrointestinal Gastrointestinal: Denies change in bowel habits Genitourinary Genitourinary: Denies burning urination or genital lesions Integumentary Integumentary: Denies rash Neurologic Neurologic: Denies confusion, dizziness, headache(s), numbness or weakness Vital Signs Vital Signs Vital Signs: Weight Weight: 78.471 kg Body Mass Index (BMI) 28.8 Labs Labs Labs: Blood Type B POSITIVE Antibody Screen NEGATIVE Hct 40.3 % (37-47) Hgb 13.9 g/dL (12.0-15.0) Syphilis Total Ab Pending Assessment & Plan (1) 39 weeks gestation of : (2) Previous section complicating : (3) GDM (gestational diabetes mellitus), class A1: (4) Polyhydramnios affecting : PLAN: Plan Scheduled repeat section
[2024-01-26] MEDS: Lactated Ringers 1,000 ML 999 ML IV (10:00)
[2024-01-26 10:24] LABS: Absolute Lymphocyte Count 2.34 X10^3/uL (0.83-4.51); Absolute Neutrophil Count 5.3 X10^3/uL (2.0-7.7); Basophil# 0.03 X10^3/uL; Basophil% 0.3 % (0-1); Eosinophil# 0.07 X10^3/uL; Eosinophils% 0.8 % (0-5); Hematocrit 40.3 % (37-47); Hemoglobin 13.9 g/dL (12.0-15.0); Lymphocyte # 2.34 X10^3/ul (0.83-4.51); Lymphocyte % 27.2 % (19-41); Mean Corp Hgb Conc 34.5 g/dL (32-36); Mean Corpuscular Hgb 31.6 pg (27.0-32.0); Mean Corpuscular Volume 91.6 fL (81-99); Monocyte% 9.3 % (0-10); NRBC Flagged by Analyzer 0 % (0-5); Neutrophil # 5.33 X10^3/uL (2.7-7.7); Neutrophil % 61.9 % (47-70); Platelet Count 194 K/mm3 (150-450); RBC Distribution Width CV 13.1 % (11.6-14.6); RBC Distribution Width SD 44.1 fl (35.1-43.9); White Blood Count 8.6 K/mm3 (4.4-11.0)
[2024-01-26] MEDS: Acetaminophen 500 MG Tablet 1000 MG PO ×3 (10:26→23:39)
[2024-01-26 10:39] LABS: Bedside Glucose 88 mg/dL (74-106)
[2024-01-26] MEDS: Lactated Ringers 1,000 ML 150 ML IV (11:01)
[2024-01-26] MEDS: Sodium Citrate/Citric Acid 30 ML UDC PO (11:51)
[2024-01-26] MEDS: Cefazolin 2 GM in Syringe IV (12:13)
--- NOTE | 2024-01-26 13:01 | OP.PCM_ITS ---
Assessment & Plan (1) Delivery by section: (2) Previous section complicating : (3) Polyhydramnios affecting : (4) GDM (gestational diabetes mellitus), class A1: (5) Dehiscence of old uterine scar with extension before onset of labor, delivered: Maternal Data Information Final ANNA: 02/02/24 Gestational age: 39 weeks Operative Report (OB) Cecarean Details Procedure Type: low transverse Surgeon: Ashley Bassett Date of Procedure: 01/26/24 Procedure Start Time: : Time of Delivery: 12:30 Pre-Operative Diagnosis: Repeat Elective Post-Operative Diagnosis: Same as Pre-operative diagnosis Classification: Scheduled Type of Anesthesia: Spinal Antibiotic Given: Ancef 2 grams IV x1 Drain: Alvarenga to straight drain Estimated Blood Loss: 500 cc Findings Description of surgery: Patient taken to the OR where Spinal was dosed for . She was placed in a dorsal supine position with leftward tilt. She was prepped and draped in the normal sterile fashion. A Pfannenstiel incision was made and carried down to the underlying fascia. The fascia was incised in the midline and extended laterally. The fascia was dissected from the muscle. The muscles divided in the midline. The peritoneum was entered bluntly and extended manually. A bladder blade was placed. The lower uterine segment was completely replaced by a uterine window. Only a thin layer of peritoneum was between the abdominal cavity and the membranes. An Allis was used to rupture the membranes. The head was elevated to the incision. The shoulders delivered easily. The cried upon delivery. The cord was cut and clamped. The placenta was delivered with enoc traction. The uterus was exteriorized and cleared of all clot and debris. The incision was repaired with 1-0 Vicryl x 2. The uterus was returned the abdomen, The gutter cleared of all clots. The peritoneum was closed with 2-0 Monocryl. The fascia was closed with 1-0 Vicryl. The subcutaneous tissue was reapproximated with 2-0 Monocryl The skin was closed with 4-0 Monocryl. I performed the major parts of the procedure with the MACHINE MAINTENANCE TECHNICIAN assisting with retraction and closing the skin. The sponge lap and needle count was correct x 2 Surgical findings: large uterine window replacing lower uterine segment Presentation: Vertex Amniotic Membrane Rupture Type: Artificial Amniotic Fluid Description: Clear Placental Delivery Description: Expressed Placenta Disposition: [facility] Specimen collected: No Cord Vessel Description: 3 Vessels Cord Entanglement: None A gender: Male (1 minute): 7 (5 minute): 8 Delayed Cord Clamping: Yes Fertilizer Supervisor facility maintenance mechanic: Yes Scrap Drop Crane Operator: Anand Carey Tasks completed by bookkeeper assistant: Opening & closing and Retracting Additional accounts receivable assistant?: No Complications Complications: No
[2024-01-26] MEDS: Oxytocin 15 Units/NS 250ml 15 UNITS/250 ML IV.SOLN 83 UNITS IV (13:10)
[2024-01-26 13:27] LABS: Syphilis Antibodies Non-reactive
[2024-01-26] MEDS: 0.9% Saline Lock 10 ML Syringe IV ×2 (14:27→20:19)
[2024-01-26] MEDS: Ketorolac 30 MG/ML Syringe IV ×2 (14:27→20:19)
[2024-01-26 14:30] LABS: Bedside Glucose 89 mg/dL (74-106)
[2024-01-26] MEDS: Sertraline 50 MG Tablet 25 MG PO (21:59)
[2024-01-27] MEDS: Ketorolac 30 MG/ML Syringe IV ×2 (02:05→07:52)
[2024-01-27] MEDS: 0.9% Saline Lock 10 ML Syringe IV (02:05)
[2024-01-27 04:00] VITALS: BP 102/69; PULSE 64; RESP 17; TEMP 36.2; O2SAT 99
[2024-01-27 06:20] LABS: Hematocrit 33.2 % (37-47); Hemoglobin 11.3 g/dL (12.0-15.0); Mean Corpuscular Hgb 31.9 pg (27.0-32.0); Mean Corpuscular Volume 93.8 fL (81-99); Mean Platelet Vol. 10.7 fl (6.2-12.0); Platelet Count 129 K/mm3 (150-450); RBC Distribution Width CV 13.2 % (11.6-14.6); RBC Distribution Width SD 45.1 fl (35.1-43.9); Red Blood Count 3.54 M/mm3 (4.2-5.4); White Blood Count 10.1 K/mm3 (4.4-11.0)
[2024-01-27 06:28] LABS: Bedside Glucose 95 mg/dL (74-106)
[2024-01-27] MEDS: Acetaminophen 500 MG Tablet 1000 MG PO ×2 (06:39→12:13)
--- NOTE | 2024-01-27 07:10 | PCM.PN.OB ---
Subjective Subjective Doing well. Ambulating and voiding without difficulty. Mild lochia. Breast feeding. Objective Data Objective Data Vital Signs: Vital Signs Temp Pulse Resp BP Pulse Ox O2 Del Method 97.2 F L 64 17 102/69 99 Room Air 01/27/24 04:00 01/27/24 04:00 01/27/24 04:00 01/27/24 04:00 01/27/24 04:00 01/27/24 04:00 Oxygen Delivery Method Room Air Weight: 78.471 kg Body Mass Index (BMI) 28.8 Intake & Output: Intake and Output for Last 24 Hours 01/25/24 01/26/24 01/27/24 23:59 23:59 23:59 Intake Total 1417.5 / 1417.5 Output Total 900 / 900 Balance 517.5 / 517.5 Lab / Micro Data 01/27/24 05:50 Labs: Laboratory Results - last 24 hr 01/26/24 10:00: WBC 8.6, RBC 4.40, Hgb 13.9, Hct 40.3, MCV 91.6, MCH 31.6, MCHC 34.5, RDW Std Deviation 44.1 H, RDW Coeff of Jules 13.1, Plt Count 194, MPV 11.0, Immature Gran % (Auto) 0.500, Neut % (Auto) 61.9, Lymph % (Auto) 27.2, Ballard % (Auto) 9.3, Eos % (Auto) 0.8, Baso % (Auto) 0.3, Absolute Neuts (auto) 5.3, Absolute Lymphs (auto) 2.34, Nucleated RBC % 0, Syphilis Total Ab Non-reactive, Blood Type B POSITIVE, Antibody Screen NEGATIVE 01/26/24 10:15: POC Glucose 88 01/26/24 13:41: POC Glucose 89 01/27/24 05:43: POC Glucose 95 01/27/24 05:50: WBC 10.1, RBC 3.54 L, Hgb 11.3 L, Hct 33.2 L, MCV 93.8, MCH 31.9, MCHC 34.0, RDW Std Deviation 45.1 H, RDW Coeff of Jules 13.2, Plt Count 129 L, MPV 10.7 ROS Constitutional Constitutional: Denies fatigue, fever(s) or malaise Eyes Eyes: Denies change in vision ENT HEENT: Denies dizziness or headache(s) Cardiovascular Cardiovascular: Denies chest pain, dyspnea or lightheadedness Respiratory/Chest Respiratory/Chest: Denies cough or dyspnea Gastrointestinal Gastrointestinal: Denies change in bowel habits Genitourinary Genitourinary: Denies burning urination or genital lesions Integumentary Integumentary: Denies rash Neurologic Neurologic: Denies confusion, dizziness, headache(s), numbness or weakness Physical Exam Const alert General Appearance: cooperative GI GI Narrative: soft, moderate distention, fundus firm, appropriately tender. Abdominal bandage clean dry and intact Assessment & Plan (1) Delivery by section: (2) Dehiscence of old uterine scar with extension before onset of labor, delivered: PLAN: Routine care
[2024-01-27 07:54] VITALS: BP 109/75; PULSE 68; RESP 17; TEMP 36.7
[2024-01-27] MEDS: Senna/Docusate Sodium 1 Tablet PO (12:13)
[2024-01-27] MEDS: Prenatal Vits Tablet 1 TABLET PO (12:13)
--- NOTE | 2024-01-27 13:09 | DCINST_ITS ---
Discharge Instructions Diet Discharge Diet: No restrictions DC O2, CPAP, BIPAP needs Additional Home O2 Discharge instructions: No Dressing / Incision Discharge Activity: May Drive (once you feel strong enough to slam on a brake or turn a steering wheel sharply) and May Shower May resume sexual activity in: 6 weeks Ice area for (Minutes): 15 Weight Bearing Status: Weight bearing as tolerated Lifting Restrictions: nothing heavier than baby Dressing / Incision Call your doctor if your incision/area has: Continuous Slow Oozing, Sudden Increased Bleeding, Increased Pain/ Swelling, Increased Redness, Foul Smelling Discharge and Swelling at the incision site Call your doctor if you observe: Fever of 101 or Higher, Numbness or Tingling, Inability to urinate, Inability to have a bowel movement, Using more than 1 pad per hour, Shortness of breath, Dizziness, Swelling in the ankles, Chest pain, Increased palpitations (irregular heartbeat), Calf discomfort and Uncontrolled pain Suture Line Care: Avoid Pulling/Pushing and Avoid Pinching/Bending Remove Dressing in: 4 days Cleanse incision/area with: Soap & Water Follow Up Care Please Follow Up With: Ashley Bassett MD When: 1 week for incision check 6 week visit Test Results: Test results from this visit will be discussed in further detail at your follow- up appointment, if applicable. Discharge Plan Admission Admit Date/Time: 01/26/24 09:37 Primary Reason for Your Visit: surgery/delivery Attending Provider: Ashley Bassett Primary Care Provider: Lyle Ledesma Instructions Patient Instructions: After a Discharge Orders/Prescriptions Prescriptions: No Action sertraline [Zoloft] 25 mg Tablet 25 mg PO DAILY PNV cmb#95-ferrous fumarate-FA [] 28 mg iron- 800 mcg tablet 1 tab PO DAILY Referrals / Follow Up: Lyle Ledesma DO [Primary Care Provider] - Disposition Disposition (needs filled in before D/C Order can be placed): Home, Self Care
[2024-01-27 13:46] VITALS: BP 109/71; PULSE 68; RESP 16; TEMP 36.1
[2024-01-27 13:53] VITALS: BP 109/71; PULSE 68; RESP 16; TEMP 36.4
--- NOTE | 2024-01-27 19:25 | CASEMGMT ---
Social Work Assessment Labor and Delivery Unit Date of Referral: 01/26/2024 Time of Referral:? 3:30pm Referred By: Serjio Date of Intervention: 01/27/2024 Time of Intervention: 11:00am Reason for Referral:? Mental health Social Work completed chart review and acknowledges SW consult due to maternal mental health.? SW presented to bedside and introduced self to Heather TORRES.? MARIAH completed psychosocial assessment and asked MELISSA to complete [place] Depression Scale. History obtained from: Medical record and MOB Household composition:? MELISSA reports that she lives with her boyfriend and 3 year old daughter, baby will also reside with mother and boyfriend when ready for discharge.?? MELISSA denies any concerns with housing. Patient's parent/guardian status:? ?MELISSA reports that she and father of baby have been together for around 5 years.? They have a 3 year old daughter together, no other children for either parent. Medical History: MELISSA is a 28 year old female who is 2, para 1 now 2 following delivery of .? MELISSA presented to hospital for scheduled .? MELISSA delivered baby at 39 weeks gestation.? Baby yamileth Gonzalez, was born weighing 8 lbs, 3 ounces with ?s of 7 and 8 at one and five minutes of life.? MELISSA is . Educational Status: ?MELISSA reports she graduated from college with a bachelor?s degree in education.? No concerns with reading, writing or comprehension. Financial Status: MELISSA is gainfully employed outside of the home working for [employer]. MELISSA reports she will be returning to work as able, stating that she has flexibility to work when she can.? FOB is employed at [employer] as the heading and priming operator.? MELISSA reports no financial concerns.? Supplies: MELISSA had obtained all necessary supplies including car seat, safe sleep space, clothes, diapers, and wipes.?? Childcare/Caregiver(s):? MELISSA states her and FOB will be primary care takers for baby.? MELISSA states she also has help from her mother, 2 sister, and aunt and her father.? Transportation:?? MELISSA has her drivers license and reliable transportation.? No barriers at this time. Programs/Agencies Involved: ?Is currently using WIC, was encouraged to call and get future appointment scheduled now that baby has been born.? Children Services/Legal Issues: None ??? Behavioral Health Issues: ??Mental Health History: MELISSA states that there are no mental health diagnosis on FOB side of the family.? MOB states that she has had issues with anxiety in the past and have been prescribed Zoloft. MELISSA states that she has never seen a counselor and is not interested at this time.? She reports that her PCP prescribed her Zoloft many years ago and she isn?t sure she really needs it anymore.? MOB did report that she was not going to discontinue at this time, stating she is aware that this could be a difficult time. MELISSA was encouraged to talk with her physician prior to making any changes with her medication. ? MELISSA was given the [place] Depression Scale, her score was a 1. ???Substance Use History:? None ???Family History:? None ?Maternal and Infant Drug Screens:No drug screens observed in chart review Family/Social Stressors:? None Support Systems: MELISSA states her family is a support including her parents, her sisters and an aunt. Depression and Anxiety/Shaken Baby/Safe Sleeping: SW educated MOB on signs and symptoms of baby blues and mood and anxiety disorders to be mindful of during this period.? Sw provided literature for MOB to review regarding these topics.? MOB was receptive of information provided.? SW educated MOB on ABCs of safe sleep; MOB expressed understanding of same. ASSESSMENT:? MOB and baby admitted following scheduled .? Upon entering room, mom was holding baby. ??FOB had been in room prior to assessment.? MOB was talkative and receptive to sw involvement and support PLAN: MOB and baby to be discharged when medically ready.? MOB was provided literature regarding Help me grow, safe sleep, shaken baby prevention, [facility] and education regarding mood and anxiety disorders to be aware of. No other services requested or indicated. Miriam Cotton, PROJECT DIRECTOR, REGISTERED MEDICAL TRANSCRIPTIONIST
--- NOTE | 2024-01-31 14:56 | NURSING ---
F/up phone call questions asked while family was present for IBCLC visit. Pt. reports things have been going well as far as healing from delivery. Denies s+s of complications. Infant was down in weight, and pt. opted to switch to exclusive pumping. Close follow up made with PCP and . Encouragement and support given.
== END 2024-01-27 15:00 | disposition home or self-care (01) | DRG 540 ==
PROVIDERS: Admitting Provider Obstetrics & Gynecology; PCP Family Medicine; Referring Provider Obstetrics & Gynecology; Visit Provider Obstetrics & Gynecology
PROC: 10D00Z1 Extraction of Products of Conception, Low, Open Approach (ICD-10-PCS; CPT 59514; principal; 2024-01-26 11:45)
DX: O24.429 Gestational diabetes mellitus in childbirth, unspecified control (principal); O40.3XX0 Polyhydramnios, third trimester, not applicable or unspecified; F32.A Depression, unspecified; F41.9 Anxiety disorder, unspecified; Z37.0 Single live birth; Z3A.39 39 weeks gestation of pregnancy; O90.0 Disruption of cesarean delivery wound; O99.344 Other mental disorders complicating childbirth; O34.219 Maternal care for unspecified type scar from previous cesarean delivery
CPT/HCPCS: 82962; 85025; 85027; 86780; 86850; 86900; 86901; 99221; J7120; A4216; G0378; J2405